=== PATIENT | male | born 1995 | race Caucasian/White ===

== ENCOUNTER 2018-11-19 12:30 | Day surgery (SDC) | payer BC, SELFPAY ==
[2018-11-18 09:36] VITALS: BMI 27.2
[2018-11-19] VITALS (8 sets, daily range): BP systolic 113–143; BP diastolic 57–96; PULSE 53–76; RESP 12–64; TEMP 36.2–36.9; O2SAT 10–100; BMI 26.8
[2018-11-19] MEDS: LACTATED RINGERS 1,000 ML 100 ML IV (13:09)
--- NOTE | 2018-11-19 13:34 | PM.PREOP ---
Pre-operative Note Interval Note History & Physical reviewed/Exam performed by Physician: Yes Changes to H&P: No
[2018-11-19] MEDS: CEFAZOLIN 2 GM/100 ML FROZ.PIGGY IV (14:06)
--- NOTE | 2018-11-19 14:44 | SUR.OPER ---
Lithotomy on padded OR bed. De [place] Pad Positioner under torso. Head on pillow, arms padded and tucked at sides. Legs secured in algnment with safety belt at thighs, tape ove blanket over lowwer legs
[2018-11-19] MEDS: BUPIVACAINE 0.25% (PF) VIAL 30 ML INJ (14:51)
--- NOTE | 2018-11-19 15:39 | PM.OP.1 ---
Operative Date/Time/Diagnoses Date of procedure: 11/19/18 Time of procedure: 15:39 Pre-op diagnosis: right inguinal hernia Post-op diagnosis: same Procedure & Clinicians Procedure: Laparoscopic Trans Abdominal Preperitoneal Inguinal Hernia Repair Same procedure as scheduled: Yes Indications: 23 year old male with a symptomatic right inguinal hernia presents for elective repair Surgeon: Miles Venegas Click Yes if Unassisted: Yes Anesthesia Type: General Operative Notes Findings: Right Indirect inguinal hernia Specimen(s): none sent Estimated Blood Loss (mL): 10 Procedure in detail: The patient was brought to the operating room and placed supine on the table. Bilateral sequential compression devices were applied. General anesthesia was induced and they were intubated with an endotracheal tube. They received 2 g acne prior to skin incision. They were prepped and draped in sterile fashion. A time out was performed to ensure the correct patient, procedure and necessary equipment within the operating room. The skin was infiltrated with 0.25% bupivicaine. A 1 cm supra umbilical midline incision was made. The umbilical stalk was elevated the fascia sharply incised and the abdomen entered traumatically. A 10mm balloon port was placed and pneumoperitoneum was established at 15mm Hg. Insepction of the abdomen demonstrated no evidence of injury upon entry. Two 5 mm ports were then placed under direct visualization in the right and left lower quadrant lateral to the rectus muscle. A right indirect hernia were observed. The peritoneum 2 cm superior to the myopectineal orifice between the medial umbilical ligament and the anterior superior iliac spine was incised. The peritoneal flap was retracted and the preperitoneal tissue was dissected off the flap. This was continued until a cylinder of peritoneal tissue comprising the hernia sac extending into the inguinal canal was identified and sac reduced back into the peritoneal cavity. The vas deferens and spermatic vessels were identified protected. The peritoneum was dissected off the the spermatic vessels and fully exposed to the point where the vas deferens intersects with the medial umbilical ligament. A Bard 3D Max mesh was then placed into the abdomen and positioned such that the myopectineal orifice was completely covered with good overlap on all sides. The mesh was anchored to the pubic tubercle and to Sherwin?s ligament. The peritoneal flap was then repositioned back to its original position and tacks were used to anchor it in position such that no bowel could herniate into the preperitoneal space. The area was examined for hemostasis. There was no left inguinal hernia. The 5mm trocars were removed under direct visualization and pneumoperitoneum was deflated through the umbilical trocar, The fascia at the umbilicus was closed with 0-Vicryl in figure of 8 fashion, skin closed with 4-0 Monocyl followed by Dermabond. The sponge and instrument count at the end of the case was correct. Both testicles were entirely within the scrotum at the end of the case. The patient emerged from anesthsia was extubated and transferred to recovery in stable condition. Post-operative Condition: stable Disposition: same day surgery
[2018-11-19] MEDS: OXYCODONE/ACETAMINOPHEN 5/325 TABLET 1 TAB PO (15:59)
--- NOTE | 2018-11-19 16:10 | SUR.PHASEI ---
Gave po pain medication for c/o abdominal pain. VSS. OK to transition to phase 11.
--- NOTE | 2018-11-19 16:51 | SUR.PHASEII ---
d/c instructions discussed with girlfriend and pt, both voiced an understanding. Pt dressed when ready and left when ready and in stable condition. Abdomen c/d/i.
== END 2018-11-19 16:52 | disposition home or self-care (01) ==
PROVIDERS: Family Provider Family Medicine; PCP Family Medicine; Visit Provider Surgery
PROC: 0YQ54ZZ Repair Right Inguinal Region, Percutaneous Endoscopic Approach (ICD-10-PCS; CPT 49650; principal; 2018-11-19 14:00)
DX: K40.90 Unilateral inguinal hernia, without obstruction or gangrene, not specified as recurrent (principal)
CPT/HCPCS: 49650; C1781; J0690; J1100; J1885; J2250; J2405; J2704; J3010

== ENCOUNTER → 2019-02-06 07:39 | Outpatient (CLI) | payer BC, SELFPAY ==
--- NOTE | 2019-02-06 07:40 | DI.US.S_ITS ---
PROCEDURE: US ABDOMEN LIMITED INDICATIONS: POST-OP HERNIA TO EVALUATE STATUS TECHNIQUE: Real-time focused scanning was performed of the abdomen, with image documentation. COMPARISON: None. FINDINGS: No ultrasound findings to suggest recurrent hernia. No fluid collections or mass. Prominent right inguinal lymph nodes are noted measuring up to 0.7 x 1.0 x 2.8 cm. IMPRESSION: 1. No postsurgical complications visualized. 2. No recurrent hernia. 3. Prominent right inguinal lymph nodes, most likely reactive. Dictated by: Marvel Miller M.D. on 02/06/2019 at 9:04 Approved by: Marvel Miller M.D. on 02/06/2019 at 9:07
== END ==
PROVIDERS: Family Provider Family Medicine; PCP Family Medicine; Visit Provider Surgery
DX: R10.30 Lower abdominal pain, unspecified (principal); K40.90 Unilateral inguinal hernia, without obstruction or gangrene, not specified as recurrent; R59.0 Localized enlarged lymph nodes
CPT/HCPCS: 76705